=== PATIENT | male | born 1940 | race Caucasian/White ===

== ENCOUNTER 2022-05-17 09:25 | Observation (INO) | payer MEDICARE, OTHER ==
[2022-05-11 11:42] LABS: BASOPHILS # (AUTO) 0.1 X10'3 (0-0.2); BASOPHILS % (AUTO) 1.1 % (0-1); EOSINOPHILS # (AUTO) 0.2 X10'3 (0-0.9); EOSINOPHILS % (AUTO) 3.9 % (0-6); LYMPHOCYTES # (AUTO) 1.7 X10'3 (1.1-4.8); LYMPHOCYTES % (AUTO) 29.8 % (21-51); MEAN CORPUSCULAR HEMOGLOBIN 31.3 PG (27.0-31.0); MEAN CORPUSCULAR HGB CONC 33.4 g/dL (33.0-36.5); MEAN CORPUSCULAR VOLUME 93.7 FL (78-98); MEAN PLATELET VOLUME 7.8 FL (7.4-10.4); MONOCYTES # (AUTO) 0.5 X10'3 (0-0.9); MONOCYTES % (AUTO) 9.6 % (2-12); NEUTROPHILS # (AUTO) 3.1 X10'3 (1.8-7.7); NEUTROPHILS % (AUTO) 55.6 % (42-75); PRE OP HEMATOCRIT 40.6 % (42.0-52.0); PRE OP HEMOGLOBIN 13.6 g/dL (14.0-17.9); PRE OP PLATELET COUNT 239 X10'3 (140-440); RED BLOOD COUNT 4.33 X10'6 (4.70-6.10); RED CELL DISTRIBUTION WIDTH 16.2 % (11.5-14.5)
[2022-05-11 11:44] LABS: CLARITY,URINE SLIGHTLY CLOUDY (Clear); COLOR,URINE YELLOW (Yellow); GLUCOSE, URINE NEGATIVE (Neg); KETONES,URINE NEGATIVE (Neg); LEUKOCYTE ESTERASE ,URINE NEGATIVE (Neg); NITRITES, URINE NEGATIVE (Neg); OCCULT BLOOD,URINE NEGATIVE (Neg); PROTEIN,URINE NEGATIVE (Neg); UA COLLECTION TYPE CLN CATCH MIDSTREAM; UROBILINOGEN,URINE 0.2 E.U/dL (0.2-1.0)
[2022-05-11 11:49] LABS: MUCUS STRANDS FEW /LPF (Neg); SQUAMOUS EPITHELIAL CELL,UR FEW /LPF (FEW)
[2022-05-11 11:52] LABS: RBC,URINE 0-2 /HPF (0-2); WBC,URINE 0-4 /HPF (0-4)
[2022-05-11 12:00] LABS: ALBUMIN 3.5 G/DL (3.4-5.0); ALBUMIN/GLOBULIN RATIO 0.6 (1.1-1.5); ALKALINE PHOSPHATASE 78 IU/L (46-116); BLOOD UREA NITROGEN 16 MG/DL (7-18); CALCIUM 8.8 MG/DL (8.5-10.1); CHLORIDE 104 MMOL/L (99-107); PRE OP ALT 31 U/L (30-65); PRE OP ANION GAP 4 (8-16); PRE OP AST 26 U/L (10-37); PRE OP BILIRUB, TOTAL 0.3 MG/DL (0.0-1.0); PRE OP GLUCOSE 84 MG/DL (70-104); PRE OP POTASSIUM 3.9 MMOL/L (3.4-5.1); PRE OP SODIUM 136 MMOL/L (135-145); TOTAL CARBON DIOXIDE 28.5 MMOL/L (24-32); TOTAL PROTEIN 9.8 G/DL (6.4-8.2); eGFR > 90 ML/MIN
[2022-05-11 12:13] LABS: AMORPHOUS PHOSPHATES 3+
[2022-05-11 12:14] LABS: BACTERIA,URINE FEW /HPF (Neg)
[~2022-05-17] VITALS: Ht 177.8 cm; Wt 83.9 kg
[2022-05-17] VITALS (21 sets, daily range): BP systolic 125–185; BP diastolic 63–104
[~2022-05-17 09:25] MED LIST: ASPI-611 PO; LISI5TAB22 PO; PANT40TA54 PO; ROSU40TA22 PO; cefazolin 2gm/D5W 100mL 100 ML IV ONE; famotidine 20mg tablet PO ONE; ringers solution, lacted 1,000 ML IV SCH
[2022-05-17] MEDS ORDERED: fentaNYL/PF 50MCG/1 ML 2ML syringe ONE (13:33)
[2022-05-17] MEDS ORDERED: midazolam 1 mg/ML 2ml injection ONE (13:33)
[2022-05-17] MEDS ORDERED: propofol inj 20 ML IV ONE (13:33)
[2022-05-17] MEDS ORDERED: rocuronium 10mg/ml inj IV ONE (13:33)
[2022-05-17] MEDS ORDERED: sevoflurane 250ml liquid IH ONE (13:36)
[2022-05-17] MEDS ORDERED: morphine 4 MG/ML inj SYRINge IV PRN (13:40)
[2022-05-17] MEDS ORDERED: proCHLORperazine 10 MG/2 ml inj IV PRN (13:40)
[2022-05-17] MEDS ORDERED: ringers solution, lacted 1,000 ML IV SCH (13:40)
[2022-05-17] MEDS ORDERED: meperidine/PF 25mg/ml syringe IV PRN ×3 (13:40)
[2022-05-17] MEDS ORDERED: ondansetron/PF 4mg/2ml inj IV PRN ×2 (13:40→16:05)
[2022-05-17] MEDS ORDERED: morphine 2 MG/ML inj. syringe IV PRN (13:40)
[2022-05-17] MEDS ORDERED: dexamethasone sod phosphate 4mg/ml inj. ONE (13:58)
[2022-05-17] MEDS ORDERED: BUPIVAcaine/PF 2.5 mg/ml (0.25%) 30ml vial ONE (14:07)
[2022-05-17] MEDS ORDERED: BUPIVAcaine/PF 2.5 mg/ml (0.25%) 30ml vial IJ ONE (14:15)
[2022-05-17] MEDS ORDERED: ondansetron/PF 4mg/2ml inj ONE (15:54)
[2022-05-17] MEDS ORDERED: acetaminophen 1,000mg/100ml IV 100 ML IV ONE (15:54)
[2022-05-17] MEDS ORDERED: neostigmine methylsulfate 1 MG/ML 10ml vial ONE (15:55)
[2022-05-17] MEDS ORDERED: glycopyrrolate 0.2mg/ml inj ONE (15:55)
[2022-05-17] MEDS ORDERED: HYDROcodone/acetaminophen 10/325mg tab PO PRN ×2 (16:05)
--- NOTE | 2022-05-17 16:12 | NUR ---
Received from OR via [facility] BED [facility] BED 6, accompanied by DR BEYER Anesthesiologist and report given by Anesthesiolgist. PT PRESENTS WITH 20G RIGHT FOREARM, SPO2 99% 10L MASK, LR RUNNING AT 100MLS/HR, 3 LAP SITES WITH KEELY, CDI, WARREN CATHETER WITH 100MLS OUTPUT, VSS. Addendum: 05/17/22 at 1627 by Karen Venegas RN, RN Amended: Links added.
[2022-05-17] MEDS ORDERED: labetalol 20mg/4ml (5mg/ml) syringe IV PRN (16:30)
--- NOTE | 2022-05-17 17:40 | NUR ---
PT TRANSFERRED FROM [facility], VSS
--- NOTE | 2022-05-17 17:42 | NUR ---
Report called to receiving nurse ARPIT WHALEN. Transferred via [facility] BED TO ROOM 340A Belongings 2 BAGS TAKEN TO PT ROOM 340A, BED IN LOW LOCKED POSITION WITH CLAL LIGHT IN REACH, PT HOOKED UP TO VITALS MACHINE. CHART TAKEN TO NURSES STATION. Special Issues communicated to receiving nurse. Addendum: 05/17/22 at 1745 by Karen Venegas RN RN Amended: Links added.
--- NOTE | 2022-05-17 18:11 | NUR ---
Problems reprioritized. Patient report given, questions answered & plan of care reviewed with PRUDENCE RN.
[2022-05-17] MEDS: sodium chloride 0.45% 1,000 ML IV SCH (18:52)
[2022-05-17] MEDS ORDERED: atorvastatin 20mg tablet PO SCH (21:00)
[2022-05-17] MEDS ORDERED: pantoprazole 40mg Tablet.DR PO SCH (21:00)
[2022-05-17] MEDS ORDERED: lisinopril 5mg tablet PO SCH (21:00)
[2022-05-18 02:03] VITALS: BP 131/78
[2022-05-18] MEDS: sodium chloride 0.45% 1,000 ML IV SCH ×2 (02:05→12:05)
--- NOTE | 2022-05-18 06:35 | NUR ---
Patient in room [facility]. I have received report from MARLEE luna and had the opportunity to ask questions and assume patient care.
--- NOTE | 2022-05-18 06:35 | NUR ---
Patient in room [facility]. I have received report from jeremy mcdowell and had the opportunity to ask questions and assume patient care.
--- NOTE | 2022-05-18 06:37 | NUR ---
Problems reprioritized. Patient report given, questions answered & plan of care reviewed with TAM WHALEN.
[2022-05-18 06:58] VITALS: BP 110/55
--- NOTE | 2022-05-18 16:23 | NUR ---
pt discharged in a private vehicle with family member in stable condition. all belongings in hand, discharge instruction given. IV D/C'd with cannula intact.pt educated on making a follow up with . Addendum: 05/18/22 at 1626 by Rocio Madrid LVN Amended: Links added.
== END 2022-05-18 16:19 | disposition home or self-care (01) ==
LOC: PAS 09:25 → SUR 3N 17:47
PROVIDERS: ADMIT Surgery; ATTEND Surgery
DX: K40.31 Unilateral inguinal hernia, with obstruction, without gangrene, recurrent (principal)
CPT/HCPCS: 36415; 49521; 80053; 81001; 82948; 85025; 93005; 96372; 96374; C1758; C1781; G0378; J0131; J0690; J1100; J2175; J2250; J2405; J2704; J2710; J3010; J3490; J7120; A4215; A4615; A4618

== ENCOUNTER 2022-12-25 07:27 | Day surgery (SDC) | payer MEDICARE, OTHER ==
[2022-12-25] VITALS (12 sets, daily range): BP systolic 114–142; BP diastolic 63–90; PULSE 54–63; RESP 15–20; TEMP 97.6; O2SAT 92–99
[~2022-12-25] VITALS: Ht 177.8 cm; Wt 81.0 kg
[~2022-12-25 07:27] MED LIST changes: -ASPI-611 PO; -cefazolin 2gm/D5W 100mL 100 ML IV ONE; -famotidine 20mg tablet PO ONE; -ringers solution, lacted 1,000 ML IV SCH
[2022-12-25] MEDS ORDERED: sodium bicarbonate 1meq/ml syr 150 ML in dextrose 5%-water 1,000 ML IV SCH (08:10)
[2022-12-25] MEDS ORDERED: ASPI-611 PO (08:11)
[2022-12-25] MEDS ORDERED: normal saline 1,000 ML IV SCH (08:15)
[2022-12-25] MEDS ORDERED: diphenhydrAMINE 25mg capsule PO PRN (08:15)
[2022-12-25 09:59] LABS: BASOPHILS # (AUTO) 0.1 X10'3 (0-0.2); BASOPHILS % (AUTO) 1.6 % (0-1); EOSINOPHILS # (AUTO) 0.1 X10'3 (0-0.9); EOSINOPHILS % (AUTO) 1.8 % (0-6); HEMATOCRIT 39.3 % (42.0-52.0); LYMPHOCYTES # (AUTO) 1.2 X10'3 (1.1-4.8); LYMPHOCYTES % (AUTO) 31.5 % (21-51); MEAN PLATELET VOLUME 9.3 FL (7.4-10.4); MONOCYTES # (AUTO) 0.5 X10'3 (0-0.9); MONOCYTES % (AUTO) 11.9 % (2-12); NEUTROPHILS # (AUTO) 2.1 X10'3 (1.8-7.7); NEUTROPHILS % (AUTO) 53.2 % (42-75); PLATELET COUNT 220 X10'3 (140-440); RED BLOOD COUNT 4.18 X10'6 (4.70-6.10); WHITE BLOOD COUNT 3.9 X10'3 (4.5-11.0)
[2022-12-25 10:06] LABS: ALBUMIN 3.3 G/DL (3.4-5.0); ANION GAP 9 (8-16); BLOOD UREA NITROGEN 12 MG/DL (7-18); BUN/CREATININE RATIO 12.2 (10.0-20.0); CALCIUM 8.8 MG/DL (8.5-10.1); CHLORIDE 104 MMOL/L (99-107); CREATININE 0.98 MG/DL (0.60-1.10); GLUCOSE 88 MG/DL (70-104); MAGNESIUM 2.2 MG/DL (1.5-2.4); POTASSIUM 3.8 MMOL/L (3.5-5.1); SODIUM 138 MMOL/L (135-145); eCRCL 62 ML/MIN; eGFR 74 ML/MIN
[2022-12-25 10:08] LABS: PROTHROMBIN TIME 10.8 SECONDS (9.0-12.0)
[2022-12-25] MEDS ORDERED: midazolam 1 mg/ML 2ml injection ONE (11:51)
[2022-12-25] MEDS ORDERED: verapamil 2.5 mg/ml inj IV ONE (11:51)
[2022-12-25] MEDS ORDERED: LIDOcaine 1% (10mg/ml)w/preservative inj. 20ml MDV ONE (11:52)
[2022-12-25] MEDS ORDERED: heparin 1,000unit/ml 10ml vial 10 ML ONE (11:52)
[2022-12-25] MEDS ORDERED: iohexol 350 MG/ML 50ML vial IV ONE ×2 (11:52→12:31)
[2022-12-25] MEDS ORDERED: fentaNYL/PF 50MCG/1 ML 2ML syringe ONE (11:52)
[2022-12-25] MEDS ORDERED: nitroGLYCERIN 500mcg/5mL D5W 5 ML IV ONE (11:52)
[2022-12-25] MEDS ORDERED: iohexol 350MG/ML 100ml bottle IV ONE (11:52)
[2022-12-25] MEDS ORDERED: proCHLORperazine 10 MG/2 ml inj ONE (12:26)
[2022-12-25] MEDS ORDERED: HYDROcodone/acetaminophen 5mg/325mg tablet PO PRN (13:30)
[2022-12-25] MEDS ORDERED: ondansetron/PF 4mg/2ml inj IV PRN (13:30)
[2022-12-25] MEDS ORDERED: normal saline 1000ml 1,000 ML IV SCH (13:30)
[2022-12-25] MEDS ORDERED: HYDROcodone/acetaminophen 10/325mg tab PO PRN (13:30)
[2022-12-25] MEDS ORDERED: proCHLORperazine 10 MG/2 ml inj IV PRN (13:30)
== END 2022-12-25 16:30 | disposition home or self-care (01) ==
LOC: SSTAY O 07:27
PROVIDERS: ATTEND Internal Medicine Cardiovascular Disease
DX: I25.118 Atherosclerotic heart disease of native coronary artery with other forms of angina pectoris (principal); I10 Essential (primary) hypertension; E78.5 Hyperlipidemia, unspecified; I25.2 Old myocardial infarction; I42.9 Cardiomyopathy, unspecified; Z79.82 Long term (current) use of aspirin; Z79.899 Other long term (current) drug therapy; Z95.5 Presence of coronary angioplasty implant and graft; Z98.890 Other specified postprocedural states; Z81.8 Family history of other mental and behavioral disorders; Z82.49 Family history of ischemic heart disease and other diseases of the circulatory system
CPT/HCPCS: 36415; 80048; 83735; 85025; 85610; 93005; 93458; 99152; A6258; J0780; J1644; J2250; J3010; J3490; J7030; Q0163; Q9967; 99153; A6402; C1894

== ENCOUNTER → 2023-06-21 | Outpatient (CLI) | payer MEDICARE, OTHER ==
[~2023-06-21] MED LIST changes: +ASPI-611 PO; -PANT40TA54 PO
== END | disposition home or self-care (01) ==
LOC: RAD 13:12
PROVIDERS: ATTEND Surgery
DX: K40.91 Unilateral inguinal hernia, without obstruction or gangrene, recurrent (principal); S32.010A Wedge compression fracture of first lumbar vertebra, initial encounter for closed fracture; I70.0 Atherosclerosis of aorta; K86.89 Other specified diseases of pancreas; N40.0 Benign prostatic hyperplasia without lower urinary tract symptoms; M16.0 Bilateral primary osteoarthritis of hip; M85.88 Other specified disorders of bone density and structure, other site; X58.XXXA Exposure to other specified factors, initial encounter; Y93.89 Activity, other specified; Y92.89 Other specified places as the place of occurrence of the external cause; Y99.8 Other external cause status
CPT/HCPCS: 74176